=== PATIENT | male | born 1995 | race Caucasian/White ===

== ENCOUNTER 2018-07-27 23:21 | Inpatient (IN) | payer SELFPAY ==
[~2018-07-27] VITALS: Ht 152.4 cm; Wt 53.1 kg
[2018-07-27 23:24] VITALS: Ht 152.4 cm; Wt 53.1 kg
[2018-07-28] VITALS (23 sets, daily range): BP systolic 96–115; BP diastolic 48–70; PULSE 76–88; RESP 13–18
--- NOTE | 2018-07-28 02:17 | ERD ---
ER Documentation Chief Complaint Chief Complaint vomited 4x today c/o abd pain HPI 23-year-old male, previously healthy, presents the emergency department, complaining of 4 days with intermittent episodes of RLQ abdominal pain, assoc iated with nausea and vomiting. The pain is dull, constant, 8/10. No history of previous abdominal surgeries. Last p.o. 20:00h ROS All systems reviewed and are negative except as per history of present illness. Allergies Allergies: Coded Allergies: No Known Allergy (Unverified , 07/27/18) PMhx/Soc Medical and Surgical Hx: pt denies Medical Hx, pt denies Surgical Hx Hx Alcohol Use: No Hx Substance Use: No Hx Tobacco Use: No Smoking Status: Never smoker FmHx Family History: No diabetes, No coronary disease Physical Exam Vitals Vital Signs Date Temp Pulse Resp B/P (MAP) Pulse Ox O2 O2 Flow FiO2 Time Delivery Rate 07/28/18 80 20 141/90 98 Room Air 05:51 (107) 07/27/18 98.3 69 16 131/66 99 23:24 (87) Physical Exam Patient alert, oriented, vital signs stable. HEAD: Normocephalic, atraumatic. EYES: PERRLA, EOMI, Sclera and conjunctiva appear normal. NOSE: Clear and patent nostrils. EARS: Canals clear, tympanic membranes WNL. MOUTH: normal lips and tongue, no oral lesions. THROAT: Normal oropharynx, no tonsillar exudates. NECK: Supple, No lymphadenopathy. Full ROM without pain or tenderness. HEART: RRR, no rubs, murmurs, clicks or gallops. LUNGS: Clear to auscultation. ABDOMEN: Guarded, tender to palpation of the right lower quadrant, + rebound, no masses or hepatosplenomegaly. EXTREMITIES: No edema bilaterally. BACK: Full ROM, no deformity, normal back exam NEURO: Cranial nerves grossly intact, no motor or sensory deficit SKIN: No rashes, no petechia. Result Diagram: 07/28/18 0245 07/28/18 0245 Results 24 hrs Laboratory Tests Test 07/28/18 02:45 07/28/18 03:10 White Blood Count 13.1 10^3/ul Red Blood Count 5.56 10^6/ul Hemoglobin 15.5 g/dl Hematocrit 46.7 % Mean Corpuscular Volume 84.0 fl Mean Corpuscular Hemoglobin 27.9 pg Mean Corpuscular Hemoglobin Concent 33.2 g/dl Red Cell Distribution Width 12.1 % Platelet Count 262 10^3/UL Mean Platelet Volume 9.6 fl Immature Granulocytes % 0.400 % Neutrophils % 92.3 % Lymphocytes % 5.4 % Monocytes % 1.5 % Eosinophils % 0.2 % Basophils % 0.2 % Nucleated Red Blood Cells % 0.0 /100WBC Immature Granulocytes # 0.050 10^3/ul Neutrophils # 12.1 10^3/ul Lymphocytes # 0.7 10^3/ul Monocytes # 0.2 10^3/ul Eosinophils # 0.0 10^3/ul Basophils # 0.0 10^3/ul Nucleated Red Blood Cells # 0.0 10^3/ul Prothrombin Time 12.5 Sec Prothrombin Time Ratio 1.0 INR International Normalized Ratio 0.92 Activated Partial Thromboplast Time 26.3 Sec Sodium Level 143 mmol/L Potassium Level 3.5 mmol/L Chloride Level 104 mmol/L Carbon Dioxide Level 30 mmol/L Anion Gap 9 Blood Urea Nitrogen 18 mg/dl Creatinine 0.83 mg/dl Est Glomerular Filtrat Rate mL/min > 60 mL/min Glucose Level 140 mg/dl Calcium Level 9.7 mg/dl Total Bilirubin 0.3 mg/dl Direct Bilirubin 0.00 mg/dl Indirect Bilirubin 0.3 mg/dl Aspartate Amino Transf (AST/SGOT) 30 IU/L Alanine Aminotransferase (ALT/SGPT) 40 IU/L Alkaline Phosphatase 123 IU/L Total Protein 8.4 g/dl Albumin 4.7 g/dl Globulin 3.70 g/dl Albumin/Globulin Ratio 1.27 Lipase 30 U/L Urine Color YELLOW Urine Clarity CLEAR Urine pH 6.0 Urine Specific [place] 1.014 Urine Ketones 1+ mg/dL Urine Nitrite NEGATIVE mg/dL Urine Bilirubin NEGATIVE mg/dL Urine Urobilinogen NEGATIVE mg/dL Urine Leukocyte Esterase NEGATIVE Jarrell/ul Urine Hemoglobin NEGATIVE mg/dL Urine Glucose NEGATIVE mg/dL Urine Total Protein NEGATIVE mg/dl Current Medications Medications Dose Sig/Merrick Start Time Status Last (Trade) Ordered Route PRN Stop Time Admin Dose Reason Admin Sodium 1,000 ml @ Q1H STAT 07/28/18 DC 07/28/18 Chloride 1,000 mls/hr IV 02:20 02:35 07/28/18 03:19 Morphine 2 mg ONCE STAT 07/28/18 DC 07/28/18 Sulfate IV 02:20 02:35 (morphine) 07/28/18 02:24 Ondansetron 4 mg ONCE STAT 07/28/18 DC 07/28/18 HCl (Zofran IV 02:20 02:36 Inj) 07/28/18 02:24 Sodium 1,000 ml @ Q1H ONCE 07/28/18 DC 07/28/18 Chloride 1,000 mls/hr IV 04:30 04:28 07/28/18 05:29 Piperacillin 100 ml @ ONCE ONCE 07/28/18 DC 07/28/18 Sod/ 200 mls/hr IVPB 04:30 04:28 Tazobactam 07/28/18 04:59 Sod 1 mg ONCE STAT 07/28/18 DC 07/28/18 Hydromorphone IV 05:51 05:58 HCl 07/28/18 05:55 (Dilaudid) Patient: AIRAM BARNEY : 1995 Age: 23 Sex: M MR #: [id number] DOS: 07/28/18 0220 Ordering MD: SRIRAM PRIEST MD Location: [facility] Room/Bed: PROCEDURE: CT Abdomen and pelvis without contrast. CLINICAL INDICATION: Abdominal pain TECHNIQUE: CT scan of the abdomen and pelvis without contrast was performed on a multidetector high-resolution CT scan. . Coronal and sagittal reformatted images were obtained from the axial source images. Standard CT scan of the abdomen pelvis without contrast protocols were performed. The total exam CTDI equals 4.75 mGy and the total exam DLP equals 266.5 mGy-cm. One or more of the following dose reduction techniques were used: - Automated exposure control. - Adjustment of the mA and/or kV according to patient size. Use of iterative reconstruction technique. Dicom images are available COMPARISON: None FINDINGS: At the caudal aspect of the cecum there is a small focal tubular like structure likely the appendix with mild wall thickening. Note that there is mild induration and stranding adjacent to the cecum. Findings likely represent appendicitis however this may all represent inflammation of the cecum. Recommend clinical correlation. No other evidence of intra-abdominal free air free fluid or abscess. No evidence of lymphadenopathy. Remainder the colon is unremarkable. Stomach and small bowel unremarkable. Kidneys are normal in size without calcified calculi hydronephrosis or intra masses bilaterally. No evidence ureteral calcified calculi or dilatation. Urinary bladder is unremarkable. Prostate unremarkable. Liver spleen pancreas adrenal glands and gallbladder unremarkable. No evidence of biliary ductal dilation. Lung bases are unremarkable. Aorta unremarkable. Abdominal pelvic wall unremarkable. Osseous structures unremarkable. IMPRESSION: 1. At the caudal aspect of the cecum there is a switch small focal tubular like structure likely of appendix with mild wall thickening. Note there is mild induration and stranding adjacent to the cecum. Findings most likely represent appendicitis however this may all represent inflammatory changes of the cecum without a definite appendix demonstrated. Recommend clinical correlation. 2. Negative intra-abdominal free air or abscess. 3. No calcified urinary calculi or obstructive uropathy. RPTAT:AAJJ Physician Marie Date Time Electronically viewed and signed by Physician Marie on 07/28/2018 04:08 Procedures/MDM Vital signs stable. Differential diagnosis include but not limited to: UTI, colitis, gastroenteritis, kidney stones, irritable bowel syndrome, inflammatory bowel syndrome, malabsorption syndrome, cholelithiasis, food intolerance, medication side effect, pancreatitis, diverticulitis, bowel obstruction. Physical examination and clinical presentation consistent most likely with acute appendicitis. During the ED course the patient remained stable. Results and clinical impression discussed with the patient who agrees with management. The patient is stable to be admitted in [facility] for surgical consultation. Instructions explained and given directly by me to the patient with ackno wledgment and demonstrated understanding. Disclaimer: Inadvertent spelling and grammatical errors are likely due to EHR/dictation software use and do not reflect on the overall quality of patient care. Also, please note that the electronic time recorded on this note does not necessarily reflect the actual time of the patient encounter. Departure Diagnosis: Primary Impression: Abdominal pain Condition: Stable SRIRAM PRIEST MD Jul 28, 2018 02:17
[2018-07-28] MEDS ORDERED: morphine 2 MG INJ IV STA (02:20)
[2018-07-28] MEDS ORDERED: SOD CHLORIDE 0.9% 1,000 ML IV STA (02:20)
[2018-07-28] MEDS ORDERED: ONDANSETRON 4 MG INJ IV STA (02:20)
[2018-07-28] MEDS ORDERED: SOD CHLORIDE 0.9% 1,000 ML IV ONE (04:30)
[2018-07-28] MEDS ORDERED: PIPER-TAZO 3.375 GM IV (PMX) 100 ML IVPB ONE (04:30)
[2018-07-28] MEDS ORDERED: HYDROmorphONE 1 MG/ML SYG IV STA (05:51)
[2018-07-28] MEDS ORDERED: ACETAMINOPHEN 325 MG TAB PO PRN ×2 (06:30→09:30)
[2018-07-28] MEDS ORDERED: ONDANSETRON 4 MG INJ IV PRN ×3 (06:30→12:00)
[2018-07-28] MEDS ORDERED: SEVOFLURANE 15 MIN ONE (07:00)
[2018-07-28] MEDS: DEXTROSE 5%-0.45% NACL 1,000 ML IV SCH ×2 (09:28→22:41)
[2018-07-28] MEDS ORDERED: morphine 2 MG INJ IV PRN ×2 (09:30→12:00)
[2018-07-28] MEDS ORDERED: NACL 0.9% 3 ML SYG IV SCH (09:30)
[2018-07-28] MEDS ORDERED: HYDROCODONE/APAP (5/325) TAB PO PRN (09:30)
[2018-07-28] MEDS ORDERED: CEFAZOLIN 1 GM INJ ONE (09:50)
[2018-07-28] MEDS ORDERED: ROCURONIUM 50 MG INJ ONE (09:50)
[2018-07-28] MEDS ORDERED: PROPOFOL 20 ML ONE (09:50)
[2018-07-28] MEDS ORDERED: FENTAnyl 50 MCG/ML VIAL ONE (09:51)
[2018-07-28] MEDS ORDERED: MIDAZOLAM 1 MG/ML 2 ML INJ ONE (09:51)
[2018-07-28] MEDS ORDERED: ROPIVACAINE 0.5 % 30 ML VIAL ONE (09:51)
[2018-07-28] MEDS ORDERED: BUPIVACAINE 0.25%/EPI (SDV) 30 ML INJ ONE (09:52)
--- NOTE | 2018-07-28 10:13 | HP ---
Date/Time of Note Date/Time of Note DATE: 07/28/18 TIME: 10:12 Assessment/Plan VTE Prophylaxis Pharmacological prophylaxis: other Lines/Catheters IV [facility]from [facility] Saline Lock Assessment/Plan Hospital Course Patient is a male with no significant past medical history who complains of abdominal pain. Patient was diagnosed with appendicitis and admitted to the hospital. Patient states that over the past 4 days there is some episodic abdominal pain however in the past 8 hours before admission the pain became quite severe which she had to come to the ED. Patient stated that there was some nausea and vomiting as well but currently there is no nausea or vomiting. Patient denies chest pain, shortness of breath, headache, dizziness, bowel or bladder dysfunction or leg pain. Objective Physical exam General: Patient is laying in bed and answers questions appropriately Mentation: Patient is alert and oriented 4, Head: Normocephalic atraumatic Eyes: EOMI, pupils reactive to light Neck: Supple, nontender, midline Respiratory: Clear to auscultation bilaterally Cardiovascular: regular rate, no obvious murmurs Gastrointestinal: tender to palpation, bowel sounds heard. Neurological: Moves all extremities spontaneously Skin: No new skin lesions Assessment and plan Appendicitis -General surgery on board, likely surgery today -IV antibiotic -N.p.o. Sepsis -Very mild, lactic acid pending, blood cultures -IV fluids -IV antibiotic Abdominal pain -Secondary to above appendicitis Nausea vomiting -Controlled, Zofran as needed Disposition -Surgery recommendations appreciated, keep n.p.o., IV fluid, antibiotic Result Diagram: 07/28/18 0245 07/28/18 0245 Results 24hrs Laboratory Tests Test 07/28/18 02:45 07/28/18 03:10 White Blood Count 13.1 H Red Blood Count 5.56 Hemoglobin 15.5 Hematocrit 46.7 Mean Corpuscular Volume 84.0 Mean Corpuscular Hemoglobin 27.9 L Mean Corpuscular Hemoglobin Concent 33.2 Red Cell Distribution Width 12.1 Platelet Count 262 Mean Platelet Volume 9.6 Immature Granulocytes % 0.400 Neutrophils % 92.3 H Lymphocytes % 5.4 L Monocytes % 1.5 Eosinophils % 0.2 Basophils % 0.2 Nucleated Red Blood Cells % 0.0 Immature Granulocytes # 0.050 H Neutrophils # 12.1 H Lymphocytes # 0.7 L Monocytes # 0.2 L Eosinophils # 0.0 Basophils # 0.0 Nucleated Red Blood Cells # 0.0 Prothrombin Time 12.5 Prothrombin Time Ratio 1.0 INR International Normalized Ratio 0.92 Activated Partial Thromboplast Time 26.3 Sodium Level 143 Potassium Level 3.5 Chloride Level 104 Carbon Dioxide Level 30 Anion Gap 9 Blood Urea Nitrogen 18 Creatinine 0.83 Est Glomerular Filtrat Rate mL/min > 60 Glucose Level 140 Calcium Level 9.7 Total Bilirubin 0.3 Direct Bilirubin 0.00 Indirect Bilirubin 0.3 Aspartate Amino Transf (AST/SGOT) 30 Alanine Aminotransferase (ALT/SGPT) 40 Alkaline Phosphatase 123 H Total Protein 8.4 H Albumin 4.7 Globulin 3.70 H Albumin/Globulin Ratio 1.27 Lipase 30 Urine Color YELLOW Urine Clarity CLEAR Urine pH 6.0 Urine Specific [place] 1.014 Urine Ketones 1+ H Urine Nitrite NEGATIVE Urine Bilirubin NEGATIVE Urine Urobilinogen NEGATIVE Urine Leukocyte Esterase NEGATIVE Urine Hemoglobin NEGATIVE Urine Glucose NEGATIVE Urine Total Protein NEGATIVE HPI/ROS Admit Date/Time Admit Date/Time Jul 28, 2018 at 06:14 PMH/Family/Social Past Medical History Medications Current Medications Ondansetron HCl (Zofran Inj) 4 mg BRIDGE ORDER PRN IV NAUSEA/VOMITING; Start 07/28/18 at 06:30; Stop 07/29/18 at 06:29 Acetaminophen (Tylenol Tab) 650 mg ER BRIDGE PRN PO .MILD PAIN 1-3 OR TEMP; Start 07/28/18 at 06:30; Stop 07/29/18 at 06:29 Dextrose/Sodium Chloride 1,000 ml @ 75 mls/hr [id number] IV Last administered on 07/28/18at 09:28; Admin Dose 75 MLS/HR; Start 07/28/18 at 09:07 IV Flush (NS 3 ml) 3 ml PER PROTOCOL IV ; Start 07/28/18 at 09:30 Ondansetron HCl (Zofran Inj) 4 mg Q6H PRN IV NAUSEA/VOMITING; Start 07/28/18 at 09:30 Acetaminophen (Tylenol Tab) 650 mg Q6H PRN PO .PAIN 1-3 OR TEMP; Start 07/28/18 at 09:30 Acetaminophen/ Hydrocodone Bitart ([place] (5/325)) 1 tab Q6H PRN PO .PAIN 4-6; Start 07/28/18 at 09:30 Morphine Sulfate (morphine) 2 mg Q4H PRN IV .PAIN 7-10; Start 07/28/18 at 09:30 Pantoprazole (Protonix Iv) 40 mg DAILY@06 IV ; Start 07/29/18 at 06:00 Piperacillin Sod/ Tazobactam Sod 100 ml @ 200 mls/hr Q6 IVPB ; Start 07/28/18 at 12:00 Coded Allergies: No Known Allergy (Unverified , 07/27/18) Social History Smoking Status: Never smoker Exam/Review of Systems Vital Signs Vitals Vital Signs Date Temp Pulse Resp B/P (MAP) Pulse Ox O2 O2 Flow FiO2 Time Delivery Rate 07/28/18 99.2 65 20 109/71 99 Room Air 07:57 (84) Intake and Output 07/27/18 07/27/18 07/28/18 1515:00 23:00 07:00 IntakeIntake Total 2100 ml BalanceBalance 2100 ml LOGAN HOUGH Jul 28, 2018 10:13
--- NOTE | 2018-07-28 11:26 | CONS ---
Assessment/Plan Assessment/Plan Assessment/Plan (Daily) Acute appendicitis Plan: Laparoscopic appendectomy, possible open. I have discussed the procedure, outcomes, alternatives and risks with the patient who has an understanding of his situation and agrees to the proposed plan of therapy as outlined. Consultation Date/Type/Reason Admit Date/Time Jul 28, 2018 at 06:14 Date of Consultation: Jul 28, 2018 Type of Consult General surgery Reason for Consultation Acute appendicitis Date/Time of Note DATE: 07/28/18 TIME: 11:23 Hx of Present Illness The patient is an otherwise healthy 23-year-old male who presents to the emergency room with a 1 day history of abdominal pain which intensified in severity than localized to the right lower quadrant. In the emergency room he was noted to have a tender right lower quadrant, and elevated white blood cell count, and a CT compatible with acute appendicitis. He has had no fevers, chills or systemic symptoms. Review of systems: Head ears eyes nose and throat: Unremarkable Pulmonary: No history of asthma, pneumonia or shortness of breath Cardiac: No history of chest pain, arrhythmia or MA Abdomen: As in the HPI unremarkable Past Medical History Medical History: no pertinent history Medications Current Medications Ondansetron HCl (Zofran Inj) 4 mg BRIDGE ORDER PRN IV NAUSEA/VOMITING; Start 07/28/18 at 06:30; Stop 07/29/18 at 06:29 Acetaminophen (Tylenol Tab) 650 mg ER BRIDGE PRN PO .MILD PAIN 1-3 OR TEMP; Start 07/28/18 at 06:30; Stop 07/29/18 at 06:29 Dextrose/Sodium Chloride 1,000 ml @ 75 mls/hr [id number] IV Last administered on 07/28/18at 09:28; Admin Dose 75 MLS/HR; Start 07/28/18 at 09:07 IV Flush (NS 3 ml) 3 ml PER PROTOCOL IV ; Start 07/28/18 at 09:30 Ondansetron HCl (Zofran Inj) 4 mg Q6H PRN IV NAUSEA/VOMITING; Start 07/28/18 at 09:30 Acetaminophen (Tylenol Tab) 650 mg Q6H PRN PO .PAIN 1-3 OR TEMP; Start 07/28/18 at 09:30 Acetaminophen/ Hydrocodone Bitart ([place] (5/325)) 1 tab Q6H PRN PO .PAIN 4-6; Start 07/28/18 at 09:30 Morphine Sulfate (morphine) 2 mg Q4H PRN IV .PAIN 7-10; Start 07/28/18 at 09:30 Pantoprazole (Protonix Iv) 40 mg DAILY@06 IV ; Start 07/29/18 at 06:00 Piperacillin Sod/ Tazobactam Sod 100 ml @ 200 mls/hr Q6 IVPB ; Start 07/28/18 at 12:00 Allergies: Coded Allergies: No Known Allergy (Unverified , 07/27/18) Past Surgical History Past Surgical Hx: no surgical history Family History Significant Family History: no pertinent family hx Social History Smoking Status: Never smoker Exam/Review of Systems Exam Vitals Vital Signs Date Temp Pulse Resp B/P (MAP) Pulse Ox O2 O2 Flow FiO2 Time Delivery Rate 07/28/18 99.2 65 20 109/71 99 Room Air 07:57 (84) Intake and Output 07/27/18 07/27/18 07/28/18 1515:00 23:00 07:00 IntakeIntake Total 2100 ml BalanceBalance 2100 ml Constitutional: alert, oriented Psych: no complaints Head: normocephalic Eyes: nl conjunctiva ENMT: nl external ears & nose Neck: supple Respiratory: clear to auscultation Cardiovascular: regular rate and rhythm Gastrointestinal: tender (Right lower quadrant with slight guarding but no rebound) Genitourinary - Male: nl penis, nl scrotum Extremities: normal pulses Results Result Diagram: 07/28/18 0245 07/28/18 0245 Results 24hrs Laboratory Tests Test 07/28/18 02:45 07/28/18 03:10 07/28/18 10:23 White Blood Count 13.1 H Red Blood Count 5.56 Hemoglobin 15.5 Hematocrit 46.7 Mean Corpuscular Volume 84.0 Mean Corpuscular Hemoglobin 27.9 L Mean Corpuscular Hemoglobin Concent 33.2 Red Cell Distribution Width 12.1 Platelet Count 262 Mean Platelet Volume 9.6 Immature Granulocytes % 0.400 Neutrophils % 92.3 H Lymphocytes % 5.4 L Monocytes % 1.5 Eosinophils % 0.2 Basophils % 0.2 Nucleated Red Blood Cells % 0.0 Immature Granulocytes # 0.050 H Neutrophils # 12.1 H Lymphocytes # 0.7 L Monocytes # 0.2 L Eosinophils # 0.0 Basophils # 0.0 Nucleated Red Blood Cells # 0.0 Prothrombin Time 12.5 Prothrombin Time Ratio 1.0 INR International Normalized Ratio 0.92 Activated Partial Thromboplast Time 26.3 Sodium Level 143 Potassium Level 3.5 Chloride Level 104 Carbon Dioxide Level 30 Anion Gap 9 Blood Urea Nitrogen 18 Creatinine 0.83 Est Glomerular Filtrat Rate mL/min > 60 Glucose Level 140 Calcium Level 9.7 Total Bilirubin 0.3 Direct Bilirubin 0.00 Indirect Bilirubin 0.3 Aspartate Amino Transf (AST/SGOT) 30 Alanine Aminotransferase (ALT/SGPT) 40 Alkaline Phosphatase 123 H Total Protein 8.4 H Albumin 4.7 Globulin 3.70 H Albumin/Globulin Ratio 1.27 Lipase 30 Urine Color YELLOW Urine Clarity CLEAR Urine pH 6.0 Urine Specific [place] 1.014 Urine Ketones 1+ H Urine Nitrite NEGATIVE Urine Bilirubin NEGATIVE Urine Urobilinogen NEGATIVE Urine Leukocyte Esterase NEGATIVE Urine Hemoglobin NEGATIVE Urine Glucose NEGATIVE Urine Total Protein NEGATIVE Lactic Acid Level 0.9 Medications Medication Current Medications Ondansetron HCl (Zofran Inj) 4 mg BRIDGE ORDER PRN IV NAUSEA/VOMITING; Start 07/28/18 at 06:30; Stop 07/29/18 at 06:29 Acetaminophen (Tylenol Tab) 650 mg ER BRIDGE PRN PO .MILD PAIN 1-3 OR TEMP; Start 07/28/18 at 06:30; Stop 07/29/18 at 06:29 Dextrose/Sodium Chloride 1,000 ml @ 75 mls/hr [id number] IV Last administered on 07/28/18at 09:28; Admin Dose 75 MLS/HR; Start 07/28/18 at 09:07 IV Flush (NS 3 ml) 3 ml PER PROTOCOL IV ; Start 07/28/18 at 09:30 Ondansetron HCl (Zofran Inj) 4 mg Q6H PRN IV NAUSEA/VOMITING; Start 07/28/18 at 09:30 Acetaminophen (Tylenol Tab) 650 mg Q6H PRN PO .PAIN 1-3 OR TEMP; Start 07/28/18 at 09:30 Acetaminophen/ Hydrocodone Bitart ([place] (5/325)) 1 tab Q6H PRN PO .PAIN 4-6; Start 07/28/18 at 09:30 Morphine Sulfate (morphine) 2 mg Q4H PRN IV .PAIN 7-10; Start 07/28/18 at 09:30 Pantoprazole (Protonix Iv) 40 mg DAILY@06 IV ; Start 07/29/18 at 06:00 Piperacillin Sod/ Tazobactam Sod 100 ml @ 200 mls/hr Q6 IVPB ; Start 07/28/18 at 12:00 ROLY MENDOZA MD Jul 28, 2018 11:26
--- NOTE | 2018-07-28 11:31 | PREAC ---
Date/Time of Note Date/Time of Note DATE: 07/28/18 TIME: 11:30 Anesthesia Eval and Record Evaluation Time Pre-Procedure Interview DATE: 07/28/18 TIME: 11:00 Age 23 Sex male NPO: 8 hrs Preoperative diagnosis Acute Appendicitis Planned procedure Laparoscopic Appendectomy Past Medical History Past Medical History: None Surgery & Anesthesia Issues No known issue Meds Anticoagulation: No Beta Mariam within 24 hr: No Reason Beta Mariam not given: Pt. not on B-Mariam Current Medications Ondansetron HCl (Zofran Inj) 4 mg BRIDGE ORDER PRN IV NAUSEA/VOMITING; Start 07/28/18 at 06:30; Stop 07/29/18 at 06:29 Acetaminophen (Tylenol Tab) 650 mg ER BRIDGE PRN PO .MILD PAIN 1-3 OR TEMP; Start 07/28/18 at 06:30; Stop 07/29/18 at 06:29 Dextrose/Sodium Chloride 1,000 ml @ 75 mls/hr [id number] IV Last administered on 07/28/18at 09:28; Admin Dose 75 MLS/HR; Start 07/28/18 at 09:07 IV Flush (NS 3 ml) 3 ml PER PROTOCOL IV ; Start 07/28/18 at 09:30 Ondansetron HCl (Zofran Inj) 4 mg Q6H PRN IV NAUSEA/VOMITING; Start 07/28/18 at 09:30 Acetaminophen (Tylenol Tab) 650 mg Q6H PRN PO .PAIN 1-3 OR TEMP; Start 07/28/18 at 09:30 Acetaminophen/ Hydrocodone Bitart ([place] (5/325)) 1 tab Q6H PRN PO .PAIN 4-6; Start 07/28/18 at 09:30 Morphine Sulfate (morphine) 2 mg Q4H PRN IV .PAIN 7-10; Start 07/28/18 at 09:30 Pantoprazole (Protonix Iv) 40 mg DAILY@06 IV ; Start 07/29/18 at 06:00 Piperacillin Sod/ Tazobactam Sod 100 ml @ 200 mls/hr Q6 IVPB ; Start 07/28/18 a t 12:00 Meds reviewed: Yes Allergies Coded Allergies: No Known Allergy (Unverified , 07/27/18) Allergies Reviewed: Yes Labs/Studies Labs Reviewed: Reviewed by anesthesiologist Result Diagram: 07/28/18 0245 07/28/18 0245 Laboratory Tests 07/28/18 02:45 test: N/A Studies: ECG (n/a), CXR (n/a) Pre-procedure Exam Last vitals Vital Signs Date Temp Pulse Resp B/P (MAP) Pulse Ox O2 O2 Flow FiO2 Time Delivery Rate 07/28/18 99.2 65 20 109/71 99 Room Air 07:57 (84) Airway: Adequate mouth opening, Adequate thyromental dist Mallampati: Mallampati II Teeth: Normal Lung: Normal Heart: Normal ASA Physical Status ASA physical status: 1 Emergency: E Planned Anesthetic General/MAC: ETT Nerve block: TAP (bilateral) Planned Pain Management Single shot nerve block, Parenteral pain med Pre-operative Attestations Prior to commencing anesthesia and surgery, the patient was re-evaluated, there was verification of: *The patient's identity *The results of appropriate recent lab work and preoperative vital signs *The above evaluation not changing prior to induction *Anesthetic plan, risk benefits, alternative and complications discussed with patient/family; questions answered; patient/family understands, accepts and wishes to proceed. SARAH WEINSTEIN MD Jul 28, 2018 11:31
[2018-07-28] MEDS ORDERED: ONDANSETRON 4 MG INJ ONE (11:40)
[2018-07-28] MEDS ORDERED: METOCLOPRAMIDE 10 MG INJ ONE (11:40)
[2018-07-28] MEDS ORDERED: KETOROLAC 30 MG INJ ONE (11:40)
[2018-07-28] MEDS ORDERED: SUGAMMADEX SODIUM 200 MG/2 ML VIAL IV ONE (11:40)
[2018-07-28] MEDS ORDERED: DEXAMETHASONE 4 MG/ML 5 ML INJ ONE (11:40)
[2018-07-28] MEDS ORDERED: EPHEDrine 25 MG/5 ML SYG ONE (11:50)
[2018-07-28] MEDS ORDERED: OXYCODONE/ACETAMINOPHEN (5/325) TAB PO PRN ×2 (12:00)
--- NOTE | 2018-07-28 12:04 | OPR ---
Date/Time of Note Date/Time of Note DATE: 07/28/18 TIME: 11:59 Operative Report Procedure Date: Jul 28, 2018 Preoperative Diagnosis Acute appendicitis Postoperative Diagnosis Acute appendicitis with localized peritonitis Operation/Procedure Performed Laparoscopic appendectomy Surgeon Roly Mendoza MD Transport Truck Driver None Anesthesia Type: general Anesthesiologist: SARAH WEINSTEIN MD Estimated Blood Loss: minimal Transfusion none Specimen Appendix Grafts/Implants none Tubes/Drains None Complications none Pt Condition Post Procedure: stable Disposition: PACU Indications Right lower quadrant peritonitis Procedure Description After satisfactory general endotracheal anesthesia was achieved, the abdomen was prepped and draped in the usual fashion. The abdomen was insufflated with carbon dioxide through an umbilical Veress needle to 15 mmHg pressure. The Veress needle was removed and the umbilical incision extended to 5 mm through which a 5 mm trocar was placed. A 5 mm 0 degree lens was placed. Laparoscopy showed some purulent fluid in the right lower quadrant. Under direct visualization a 5 mm suprapubic trocar was placed. The camera was placed into the suprapubic port. The omentum was peeled off the cecum exposing an acutely inflamed appendix with localized peritonitis. Under direct visualization a 12 mm left lower quadrant trocar was placed. The appendix was mobilized. A window was made in the mesoappendix through which a vascular stapler was placed across the base of the cecum, closed and fired, disconnecting the appendix from the cecum. A second firing of the vascular stapler across the mesoappendix fully freed the appendix which was placed intact into Endo Catch removed via the 12 mm port site. The appendix was cultured and submitted. Hemostasis of both staple lines was completed with electrocautery and irrigant now returned clear. 2 fascial sutures of 0 Vicryl were placed at the 12 mm port site with the assistance of a anmol-close device. The abdomen was then desufflated and the trochars removed. The fascial sutures were tied down. The 12 mm site was infiltrated with 10 cc of 0.25% Marcaine with epinephrine. The skin punctures were closed with mikaela. Sponge and needle counts were reported as correct x2. ROLY MENDOZA MD Jul 28, 2018 12:04
--- NOTE | 2018-07-28 12:16 | PAC ---
Date/Time of Note Date/Time of Note DATE: 07/28/18 TIME: 12:16 Post-Anesthesia Notes Post-Anesthesia Note Last documented vital signs Vital Signs Date Temp Pulse Resp B/P (MAP) Pulse Ox O2 O2 Flow FiO2 Time Delivery Rate 07/28/18 98.0 65 20 109/71 99 Room Air 12:12 (84) Activity: WNL Respiratory function: WNL Cardiovascular function: WNL Mental status: Baseline Pain reasonably controlled: Yes Hydration appropriate: Yes Nausea/Vomiting absent: Yes SARAH WEINSTEIN MD Jul 28, 2018 12:16
[2018-07-28] MEDS: PIPER-TAZO 3.375 GM IV (PMX) 100 ML IVPB SCH ×2 (12:54→17:34)
[2018-07-29] VITALS: BP 99/56; PULSE 69; RESP 18
[2018-07-29] MEDS: PIPER-TAZO 3.375 GM IV (PMX) 100 ML IVPB SCH ×3 (00:31→12:12)
[2018-07-29 05:34] VITALS: BP 102/56; PULSE 72; RESP 18
[2018-07-29] MEDS ORDERED: PANTOPRAZOLE 40 MG INJ IV SCH (06:00)
[2018-07-29 08:09] VITALS: BP 100/59; PULSE 67; RESP 16
--- NOTE | 2018-07-29 11:30 | PN ---
Date/Time of Note Date/Time of Note DATE: 07/29/18 TIME: 11:27 Objective Vitals Vital Signs Date Temp Pulse Resp B/P (MAP) Pulse Ox O2 O2 Flow FiO2 Time Delivery Rate 07/29/18 98.5 67 16 100/59 95 Room Air 08:09 (73) 07/28/18 8.0 12:44 Intake and Output 07/28/18 07/28/18 07/29/18 1515:00 23:00 07:00 IntakeIntake Total 1925 ml 640 ml 1270 ml OutputOutput Total 1110 ml 2300 ml 400 ml BalanceBalance 815 ml -1660 ml 870 ml Results Result Diagram: 07/29/18 0439 07/29/18 0439 Medications Medications Current Medications IV Flush (NS 3 ml) 3 ml PER PROTOCOL IV ; Start 07/28/18 at 09:30 Acetaminophen (Tylenol Tab) 650 mg Q6H PRN PO .PAIN 1-3 OR TEMP; Start 07/28/18 at 09:30 Morphine Sulfate (morphine) 2 mg Q4H PRN IV .PAIN 7-10; Start 07/28/18 at 09:30 Pantoprazole (Protonix Iv) 40 mg DAILY@06 IV Last administered on 07/29/18at 05:20; Admin Dose 40 MG; Start 07/29/18 at 06:00 Piperacillin Sod/ Tazobactam Sod 100 ml @ 200 mls/hr Q6 IVPB Last administered on 07/29/18at 05:21; Admin Dose 200 MLS/HR; Start 07/28/18 at 12:00 Oxycodone/ Acetaminophen (Percocet (5/ 325)) 1 tab Q4H PRN PO .MILD PAIN (1-3) Last administered on 07/29/18at 05:20; Admin Dose 1 TAB; Start 07/28/18 at 12:00 Oxycodone/ Acetaminophen (Percocet (5/ 325)) 2 tab Q4H PRN PO .MODERATE PAIN (4-6); Start 07/28/18 at 12:00 Ondansetron HCl (Zofran Inj) 4 mg Q6H PRN IV NAUSEA/VOMITING; Start 07/28/18 at 12:00 VTE Prophylaxis Risk score (from Nsg)>0 risk: 2 SCD applied (from Nsg): Yes Lines/Catheters IV Catheter Type: Blum in Place: No Assessment/Plan Hospital Course Subjective Patient had surgery yesterday, slight peritonitis seen, patient's abdominal pain is significantly improved Objective Physical exam General: Patient is laying in bed and answers questions appropriately Mentation: Patient is alert and oriented 4, Head: Normocephalic atraumatic Eyes: EOMI, pupils reactive to light Neck: Supple, nontender, midline Respiratory: Clear to auscultation bilaterally Cardiovascular: regular rate, no obvious murmurs Gastrointestinal: Mildly tender to palpation, bowel sounds heard. Neurological: Moves all extremities spontaneously Skin: No new skin lesions Assessment and plan Appendicitis -With localized peritonitis seen on surgery -General surgery recognitions appreciated -Patient on diet now -Continue IV anti-medics for now until surgery clears patient Sepsis -Resolving -Monitor Abdominal pain -Secondary to above appendicitis Nausea vomiting -Controlled, Zofran as needed Disposition -As patient does not have insurance will need to reach out to surgery and make sure they are okay with discharge with proper instructions. Unable to contact surgeon at this time will await surgery recommendations, keep antibiotics on until DC'd by physician. LOGAN HOUGH Jul 29, 2018 11:30
--- NOTE | 2018-07-29 12:06 | DS ---
Date/Time of Note Date/Time of Note DATE: 07/29/18 TIME: 12:06 Discharge Summary Admission/Discharge Info Admit Date/Time Jul 28, 2018 at 06:14 Discharge Date/Time Patient Condition: Stable Hospital Course Patient is a male with no past medical history who presented to [facility] for abdominal pain. Patient was diagnosed with appendicitis and taken to surgery per general surgeon. Patient is doing well now status post surgery, no complications, had bowel movement, eating well. There was minimal localized peritonitis seen on surgery so surgeon wanted patient to be discharged with a one-week course of Keflex and to follow-up with him in his office next week. Patient doing well be discharged Discharge diagnosis Appendicitis, status post lap appendectomy Sepsis, resolved Abdominal pain, resolving Nausea vomiting, resolved Primary Care Provider Care Physician No Primary Time spent on discharge: > 30 minutes Pending Labs Laboratory Tests Test 07/29/18 04:39 White Blood Count 10.7 10^3/ul (4.8-10.8) Red Blood Count 4.43 10^6/ul (4.70-6.10) Hemoglobin 12.4 g/dl (14.0-18.0) Hematocrit 37.6 % (42.0-52.0) Mean Corpuscular Volume 84.9 fl (82.0-101.0) Mean Corpuscular Hemoglobin 28.0 pg (29.0-33.0) Mean Corpuscular Hemoglobin Concent 33.0 g/dl (32.0-37.0) Red Cell Distribution Width 12.7 % (11.5-14.5) Platelet Count 230 10^3/UL (140-415) Mean Platelet Volume 10.0 fl (7.4-10.4) Immature Granulocytes % 0.600 % (0.001-0.429) Neutrophils % 81.0 % (39.0-77.0) Lymphocytes % 11.1 % (15.0-51.0) Monocytes % 7.2 % (0.0-11.0) Eosinophils % 0.0 % (0.0-7.0) Basophils % 0.1 % (0.0-2.0) Nucleated Red Blood Cells % 0.0 /100WBC (0.0-0.0) Immature Granulocytes # 0.060 10^3/ul (0.0-0.031) Neutrophils # 8.7 10^3/ul (1.6-7.5) Lymphocytes # 1.2 10^3/ul (0.8-2.9) Monocytes # 0.8 10^3/ul (0.3-0.9) Eosinophils # 0.0 10^3/ul (0.0-0.5) Basophils # 0.0 10^3/ul (0.0-0.1) Nucleated Red Blood Cells # 0.0 10^3/ul (0.0-0.0) Sodium Level 140 mmol/L (135-144) Potassium Level 4.1 mmol/L (3.5-5.1) Chloride Level 106 mmol/L (97-110) Carbon Dioxide Level 26 mmol/L (21-31) Anion Gap 8 (5-13) Blood Urea Nitrogen 13 mg/dl (7-20) Creatinine 0.80 mg/dl (0.61-1.24) Est Glomerular Filtrat Rate mL/min > 60 mL/min (>60) Glucose Level 129 mg/dl (70-220) Hemoglobin A1c 5.4 % (0-5.9) Calcium Level 8.6 mg/dl (8.4-10.2) Magnesium Level 1.9 mg/dl (1.7-2.5) Total Bilirubin 0.5 mg/dl (0.2-1.3) Direct Bilirubin 0.00 mg/dl (0.00-0.20) Indirect Bilirubin 0.5 mg/dl (0-1.1) Aspartate Amino Transf (AST/SGOT) 19 IU/L (15-46) Alanine Aminotransferase (ALT/SGPT) 27 IU/L (13-69) Alkaline Phosphatase 60 IU/L (42-121) Total Protein 6.1 g/dl (6.1-8.1) Albumin 3.4 g/dl (3.3-4.9) Globulin 2.70 g/dl (1.3-3.2) Albumin/Globulin Ratio 1.25 LOGAN HOGUH Jul 29, 2018 12:06
--- NOTE | 2018-07-29 12:08 | PDOCDIS ---
Discharge Instructions CONDITION [id number] Patient Condition: [id number] Stable HOME CARE INSTRUCTIONS: [id number] Diet Instructions: [id number] Regular ACTIVITY: [id number] Activity Restrictions: [id number] Slowly Increase Activity Rest between Activity [id number] Bathing Restrictions: [id number] Shower FOLLOW UP/APPOINTMENTS Follow-up Plan 1. Please follow-up with general surgeon, Dr. Berry within 1 week, phone number will be provided at discharge 2. Please finish all antibiotic 3. If abdominal pain continues, please return to the ED LOGAN HOUGH Jul 29, 2018 12:08
[2018-07-29] MEDS ORDERED: CEPH-443 PO (12:09)
[2018-07-29] MEDS ORDERED: HYDR-4011 PO (12:09)
== END 2018-07-29 15:02 | disposition home or self-care (01) | DRG 854 ==
LOC: FTE 23:21 → MS1 07-28 06:14
PROVIDERS: ADMIT Internal Medicine; ATTEND Internal Medicine
PROC: 0DTJ4ZZ Resection of Appendix, Percutaneous Endoscopic Approach (ICD-10-PCS; principal; 2018-07-28 12:00)
DX: A41.9 Sepsis, unspecified organism (principal); K35.30 Acute appendicitis with localized peritonitis, without perforation or gangrene
CPT/HCPCS: 36415; 74176; 80053; 81003; 83036; 83605; 83690; 83735; 85025; 85610; 85730; 88304; 96361; 96365; 96375; C9113; J0690; J1100; J1170; J1885; J2250; J2270; J2405; J2543; J2765; J2795; J3010; J7030; J7042